=== PATIENT | male | born 2000 | race Caucasian/White ===

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

== ENCOUNTER → 2021-03-14 | Outpatient (CLI) | payer OTHER | LOC: RAD 08:48 | DX: M25.561 Pain in right knee (principal) ==